=== PATIENT | male | born 1970 | race Caucasian/White ===

== ENCOUNTER 2016-11-10 00:55 | Emergency (ER) | payer OTHER ==
[~2016-11-10] VITALS: Ht 167.6 cm; Wt 87.3 kg
[2016-11-10 00:56] VITALS: BP 129/89; PULSE 92; RESP 22; O2SAT 100
--- NOTE | 2016-11-10 01:06 | ED.REPORT ---
HPI-Chest Pain 40 and Over Date of Service Nov 10, 2016 ED Provider: Sarmad Kumar MD 45 year old male with a history of GERD presents to the ER complaining of severe , sharp chest pain vs epigastric pain onset around 21:30 today that radiates into his back. Just prior to onset of pain he had a glass of water, began salivating and became quite nauseated. He also states that he had a bowel movement shortly before symptom onset that he suspects elicited symptoms. Patient denies lower extremity swelling, recent GERD flare ups, cough, hematochezia, and decreased exercise tolerance. Nursing Notes Stated Complaint: CHEST PAIN Chief Complaint: Chest Pain Nursing Notes Reviewed: Yes Allergies: Coded Allergies: No Known Allergies (Unverified Allergy, 12/15/12) Scheduled Omeprazole (Omeprazole) 20 Mg Tablet.dr 20 MG PO BID General Time Seen by MD: 01:06 Chief Complaint Chest pain Hx Obtained From: Patient Arrived By: Walk-in Sudden in Onset?: Yes Onset Occurred: 1 - 4 hours ago Symptom Duration: Since onset Location: : Epigastric: Substernal Quality: Painful, Sharp Radiation: : Back Severity: Current: Moderate Severity: Maximum: Severe Associated with: Reports: Nausea, Denies: Cough, productive, Shortness of Breath, Vomiting Pertinent Negative: Pt denies other symptoms Context Related History: Reports: GERD Similar Sx Previous: No Past Medical History Past Medical History Reports: GERD Review of Systems Constitutional: Denies: Chills, Fever Respiratory: Denies: Non-productive cough, Shortness of breath Cardiovascular: Reports: Chest pain GI: Reports: Abdominal pain, Nausea, Denies: Bloody/tarry stool, Diarrhea, Hematemesis, Hematochezia, Vomiting Musculoskeletal: Reports: Back pain, Denies: Extremity pain, Extremity swelling, Neck pain Complete sys rev & neg: except as marked. Physical Exam Initial Vital Signs Vital Signs (First) Date Time Temp Pulse Resp B/P Pulse Ox O2 Delivery O2 Flow Rate FiO2 11/10/16 00:56 36.1 92 22 129/89 100 Room Air Initial VS: Reviewed Head / Eyes: Atraumatic, Normocephalic Neck: Supple, Non-tender, Full range of motion Extremities: Vascular intact, Neuro intact, No swelling, No tenderness Skin: Warm, Dry, No cyanosis Neurologic: Alert, Oriented, Nonfocal Psychiatric: Mood/affect normal, Behavior normal, Normal thought content General/Constitutional: Awake, Alert, Well developed, Well nourished Respiratory / Chest: Breath sounds NL, Breath sounds = bilat, No respiratory distress, No rales, No rhonchi, No wheezing, No stridor, No chest tenderness Cardiovascular: Heart rate NL, Regular rhythm, Heart sounds NL, No murmurs, Peripheral circulation NL, Pulses = bilaterally, No gross BP differential Abdomen: Soft, Non-tender, No guarding, No rebound, No distention Bowel Sounds / Distention: Positive: Bowel sounds hyperactive Interpretation & Diagnostics Lab Results Interpretation Result Diagram: 11/10/16 0124 11/10/16 0202 Test 11/10/16 01:10 11/10/16 01:24 11/10/16 02:02 11/10/16 04:00 Hold [place] Top Tube Received (Received) White Blood Count 11.7th/mm3 (3.8-10.1) Red Blood Count 4.66mil/mm3 (4.40-5.80) Hemoglobin 14.1g/dL (13.8-17.2) Hematocrit 41.1% (41.0-50.0) Mean Corpuscular Volume 88.2fL (81-100) Mean Corpuscular Hemoglobin 30.3pg (27.0-35.0) Mean Corpuscular Hemoglobin Concent 34.3% (32.0-37.0) Red Cell Distribution Width 12.6% (12.3-15.4) Platelet Count 319bil/L (150-400) Neutrophils (%) (Auto) 72.1% (40-74) Lymphocytes (%) (Auto) 20.6% (14-46) Monocytes (%) (Auto) 5.1% (4-12) Eosinophils (%) (Auto) 1.4% (0-5) Basophils (%) (Auto) 0.5% (0-3) Sodium Level 136mEq/L (134-144) Potassium Level 4.2mEq/L (3.5-5.2) Chloride Level 98mEq/L (97-108) Carbon Dioxide Level 21mmol/L (18-29) Blood Urea Nitrogen 15mg/dL (6-24) Creatinine 1.10mg/dL (0.76-1.27) Estimat Glomerular Filtration Rate 76mL/min (>59) Glucose Level 155mg/dL (60-99) Calcium Level 9.6mg/dL (8.5-10.1) Magnesium Level 1.8mg/dL (1.6-2.6) Total Bilirubin 0.3mg/dL (0.0-1.2) Aspartate Amino Transf (AST/SGOT) 19U/L (0-50) Alanine Aminotransferase (ALT/SGPT) 23U/L (0-44) Alkaline Phosphatase 64U/L (25-150) Total Protein 7.1g/dL (6.4-8.4) Albumin 4.3g/dL (3.4-5.0) Troponin T 0.010ug/L (0.0-0.011) ECG Interpretation ECG Interpretation: Sinus rhythm, rate 67 Probable left atrial enlargement Diffuse nonspecific ST T wave changes Time: 01:04 Interpreted by: ED physician X-Ray Chest Interpretation Chest Xray Interpretation: Negative. View: Portable, 1 view Interpretation / Wet Read by: Wet read ED physician Re-Eval/Medical Decision Med Decision/Clinical Course 45-year-old with an intense epigastric pain radiating through to the back. Labs are negative for pancreatitis or other abnormality. He is improved after GI cocktail and Protonix. Enzymes are negative 2. Suspect acute gastritis possible early ulcer. Home with high-dose omeprazole and follow up with PCP. Prompt return if worse. Doubt cardiac origin. Doubt pulmonary embolus with negative d-dimer. Source of Hx: Old records Time of Eval: 02:46 Re-Evaluation/Progress Note: Patient is feeling improved. Time of Eval: 05:05 Re-Evaluation/Progress Note: Discussed lab and radiology results and plan to discharge. Patient is amenable to the plan. Return precautions given. All other questions addressed. Counseled Regarding: Diagnosis, Lab results, Need for follow-up, When/why to return to ED Discharge & Departure Primary Impression: Acute gastritis Additional Impression: Non-cardiac chest pain Disposition: Home Discharge Condition All VS Reviewed: Yes Condition: Stable Patient Instructions: Gastritis (DC) Additional Instructions: We have no evidence of cardiac issue, and no evidence of pancreatitis or liver dysfunction. I suspect this pain was from acid gastritis and possibly an early ulcer. Begin omeprazole twice daily for ten days then daily for another two months. Drink plenty of fluids and stay well-hydrated Avoid alcohol, acid foods, sodas, and excessively fatty foods. Follow-up with your doctor in the office Return for any immediate issues. Referrals: Betty Braswell MD (PCP) Scribe Attestation Portions of this note were transcribed by Alexander Taylor. I, Dr. Kumar, personally performed the history, physical exam and medical decision-making; I reviewed and confirmed the accuracy of the information in the transcribed note. Signed by: Rosa Dao. 11/10/2016 - 05:06 copies to: Betty Braswell MD, Christopher W MD Nov 10, 2016 01:06 ALEXANDER TAYLOR Nov 10, 2016 01:24
[2016-11-10 01:30] LABS: BASOPHILS % (AUTO) 0.5 % (0-3); EOSINOPHILS % (AUTO) 1.4 % (0-5); MONOCYTES % (AUTO) 5.1 % (4-12); Mean Corpuscular Hemoglobin 30.3 pg (27.0-35.0); Mean Corpuscular Volume 88.2 fL (81-100); NEUTROPHILS % (AUTO) 72.1 % (40-74); Platelet Count 319 bil/L (150-400)
[2016-11-10 02:00] VITALS: BP 122/59; PULSE 68; RESP 14; O2SAT 100
[2016-11-10] MEDS ORDERED: Pantoprazole 4 mg/mL 10 mL Inj IVPUSH ONE (02:05)
[2016-11-10] MEDS ORDERED: Ondansetron 2 mg/mL 2 mL Inj IVPUSH ONE (02:05)
[2016-11-10] MEDS ORDERED: Alum-Mag Hydrox-Simeth 30 mL Suspension PO ONE (02:05)
[2016-11-10 02:31] LABS: TROPONIN T 0.01 ug/L (0.0-0.011)
[2016-11-10 02:42] LABS: Magnesium 1.8 mg/dL (1.6-2.6)
[2016-11-10 03:00] VITALS: BP 123/57; PULSE 72; RESP 16; O2SAT 96
[2016-11-10] MEDS ORDERED: OMEP20TA86 PO (05:04)
[2016-11-10 05:16] VITALS: BP 119/54; PULSE 76; RESP 14; O2SAT 96
--- NOTE | 2016-11-10 09:07 | DRSVH ---
PROCEDURE: X-RAY CHEST ONE VIEW, PORTABLE ([id number]) INDICATIONS: CHEST PAIN TECHNIQUE: One view of the chest was acquired. COMPARISON: None. FINDINGS: Surgical changes and devices: None. Lungs and pleura: No pleural effusions or pneumothorax. Lungs are clear. Mediastinum: Mediastinal contours appear normal. Heart size is normal. Bones and chest wall: No suspicious bony lesions. Overlying soft tissues appear unremarkable. IMPRESSION: No acute cardiopulmonary disease. Dictated by: Julio Junior [facility] Interpreted: Lo Ball MD on 11/10/2016 at 9:06 Transcribed by: SILKE on 11/10/2016 at 9:06 Approved by: Lo Ball MD, PhD on 11/10/2016 at 16:27
== END 2016-11-10 05:04 | disposition home or self-care (01) ==
LOC: SED 00:55
DX: K29.00 Acute gastritis without bleeding (principal); R07.89 Other chest pain; K21.9 Gastro-esophageal reflux disease without esophagitis
CPT/HCPCS: 36415; 71010; 80053; 83735; 84484; 85025; 93005; 96374; 96375; 99285; J2405